=== PATIENT | male | born 1995 | race Caucasian/White ===

== ENCOUNTER 2020-01-09 15:18 | Emergency (ER) | payer SELFPAY ==
[2020-01-09 17:48] VITALS: O2SAT 99
[2020-01-09 17:49] VITALS: BP 118/72; TEMP 98
== END 2020-01-09 17:43 | disposition home or self-care (01) ==
LOC: ER 15:18
DX: R07.9 Chest pain, unspecified (principal); F17.210 Nicotine dependence, cigarettes, uncomplicated
CPT/HCPCS: 36415; 71045; 80048; 80076; 80307; 81003; 83735; 83880; 84484; 85025; 85610; 93005; 99284

== ENCOUNTER 2021-07-18 13:56 | Emergency (ER) | payer SELFPAY ==
--- NOTE | 2021-07-18 16:25 | RAD REPORT ---
EXAM DESCRIPTION: US - Scrotum Testicles - 07/18/2021 3:20 pm CLINICAL HISTORY: Pain;Swelling COMPARISON: No comparisons FINDINGS: Testicular tissue is homogeneous. Doppler evaluation shows normal blood flow within the te sticular tissue. No epididymis enlargement or hyperemia seen. Left-sided vasculature is prominent aris pected to be a small varicocele. No hernia could be confirmed. IMPRESSION: No acute testicle or epididymis finding. Small left varicocele is suspected. No right-sided hernia could be demonstrated. Ongoing concerns for inguinal hernia can be addressed wi th CT imaging.
[2021-07-18 16:45] LABS: Urine Blood Negative (Negative); Urine Glucose Negative (Negative); Urine Protein Negative (Negative); Urine Specific Gravity 1.025 (1.005-1.030); Urine pH 6.5 (5.0-7.0)
--- NOTE | 2021-07-18 16:47 | ER ---
Nurse's Notes [facility] Name: Andres Guzman Age: 26 yrs Sex: Male : 1995 Arrival Date: 07/18/2021 Time: 13:56 Bed 26 Private MD: Diagnosis: Epididymitis Presentation: 07/18 14:34 Chief complaint: Patient states: Testicular pain, swelling that last night, worse lp1 today; Right testicular pain, redness; denies any discharge;. Coronavirus screen: At this time, the client does not indicate any symptoms associated with coronavirus-19. Ebola Screen: No symptoms or risks identified at this time. Risk Assessment: Do you want to hurt yourself or someone else? Patient reports no desire to harm self or others. Onset of symptoms was July 17, 2021. 14:34 Method Of Arrival: Ambulatory lp1 14:34 Acuity: ZHOU 3 lp1 14:36 Initial Sepsis Screen: Does the patient meet any 2 criteria? No. Patient's initial lp1 sepsis screen is negative. Does the patient have a suspected source of infection? No. Patient's initial sepsis screen is negative. Historical: - Allergies: 14:35 No Known Allergies; lp1 - Home Meds: 14:35 None [Active]; lp1 - PMHx: 14:35 None; lp1 - PSHx: 14:35 None; lp1 - Immunization history:: Adult Immunizations up to date, Client reports having NOT received the Covid vaccine. - Social history:: Smoking status: Patient reports the use of cigarette tobacco products, smokes one-half pack cigarettes per day. Screenin:36 Abuse screen: Denies threats or abuse. Denies injuries from another. Nutritional lp1 screening: No deficits noted. Tuberculosis screening: No symptoms or risk factors identified. Fall Risk None identified. Assessment: 15:39 General: Appears in no apparent distress. uncomfortable, Behavior is calm, cooperative, aj1 appropriate for age. Pain: Complains of pain in pelvis Pain does not radiate. Neuro: Level of Consciousness is awake, alert, obeys commands, Oriented to person, place, time, situation. Cardiovascular: Patient's skin is warm and dry. Respiratory: Airway is patent Respiratory effort is even, unlabored, Respiratory pattern is regular, symmetrical. GI: No signs and/or symptoms were reported involving the gastrointestinal system. : Swelling noted on scrotum. EENT: No signs and/or symptoms were reported regarding the EENT system. Derm: No signs and/or symptoms reported regarding the dermatologic system. Skin is pink, warm \T\ dry. normal. Musculoskeletal: No signs and/or symptoms reported regarding the musculoskeletal system. Circulation, motion, and sensation intact. Vital Signs: 14:36 BP 126 / 71; Pulse 101; Resp 16; Temp 98.1(O); Pulse Ox 100% on R/A; Weight 63.5 kg lp1 (R); Height 5 ft. 6 in. (167.64 cm); Pain 8/10; 14:36 Body Mass Index 22.60 (63.50 kg, 167.64 cm) lp1 ED Course: 13:56 Patient arrived in ED. as 14:35 Triage completed. lp1 14:35 Arm band placed on. lp1 15:20 Scrotum Testicles US In Process Unspecified. EDMS 15:37 Thomas House NP is PHCP. pm1 15:37 Jos Marsh MD is Attending Physician. pm1 15:39 Graciela Ribera, RN is Primary Nurse. aj1 15:39 Patient has correct armband on for positive identification. Bed in low position. Call aj1 light in reach. 15:39 No provider procedures requiring assistance completed. aj1 17:19 Patient did not have IV access during this emergency room visit. aj1 Administered Medications: 16:36 Drug: HYDROcodone-acetaminophen 5 mg-325 mg 1 tabs Route: PO; aj1 17:19 Follow up: Response: No adverse reaction aj1 16:51 Drug: Rocephin (cefTRIAXone) 250 mg Route: IM; Site: right gluteus; aj1 17:19 Follow up: Response: No adverse reaction aj1 Outcome: 16:47 Discharge ordered by MD. pm1 17:19 Discharged to home ambulatory. aj1 17:19 Condition: good 17:19 Discharge instructions given to patient, Instructed on discharge instructions, follow up and referral plans. medication usage, Demonstrated understanding of instructions, follow-up care, medications, Prescriptions given X 2. 17:19 Patient left the ED. aj1 Signatures: Dispatcher [employer] EDID Graciela Ribera, RN RN aj1 Ya Esteban Laura RN RN lp1 Thomas House, INVESTIGATOR INVESTIGATOR pm1
--- NOTE | 2021-07-18 16:47 | EDPHYS ---
Physician Documentation [facility] Name: Andres Guzman Age: 26 yrs Sex: Male : 1995 Arrival Date: 07/18/2021 Time: 13:56 Bed 26 Private MD: Jos Portillo HPI: 07/18 16:34 This 26 yrs old Male presents to ER via Ambulatory with complaints of pm1 Testicular Swelling, Testicular Pain. 16:34 The patient presents with scrotal pain, of the right side, in the area of the pm1 epidydimis, with swelling. Onset: The symptoms/episode began/occurred yesterday. Modifying factors: The symptoms are alleviated by nothing, the symptoms are aggravated by movement. Associated signs and symptoms: Pertinent negatives: abdominal pain, dysuria, fever, hematuria, Penile discharge. Severity of symptoms: in the emergency department the symptoms have improved. The patient has experienced similar episodes in the past, a few times, STD related epididymitis. The patient has not recently seen a physician. Patient reports complaints of right epididymal swelling and pain onset last night. Patient reports possible cause moving 65 inch TV. Patient reports prior history of similar episodes related to STD related epididymitis. Patient reports no discharge or burning with urination. Historical: - Allergies: 14:35 No Known Allergies; lp1 - Home Meds: 14:35 None [Active]; lp1 - PMHx: 14:35 None; lp1 - PSHx: 14:35 None; lp1 - Immunization history:: Adult Immunizations up to date, Client reports having NOT received the Covid vaccine. - Social history:: Smoking status: Patient reports the use of cigarette tobacco products, smokes one-half pack cigarettes per day. ROS: 16:34 Constitutional: Negative for fever, chills, and weight loss, Cardiovascular: Negative pm1 for chest pain, palpitations, and edema, Respiratory: Negative for shortness of breath, cough, wheezing, and pleuritic chest pain, Abdomen/GI: Negative for abdominal pain, nausea, vomiting, diarrhea, and constipation. 16:34 MS/Extremity: Negative for injury and deformity, Skin: Negative for injury, rash, and discoloration. 16:34 : Positive for of the Right scrotum, Negative for urinary symptoms, hematuria, flank pain, burning with urination, difficulty urinating, penile discharge. 16:34 All other systems are negative. Exam: 16:34 Constitutional: This is a well developed, well nourished patient who is awake, alert, pm1 and in no acute distress. Head/Face: Normocephalic, atraumatic. 16:34 Skin: Warm, dry with normal turgor. Normal color with no rashes, no lesions, and no evidence of cellulitis. MS/ Extremity: Pulses equal, no cyanosis. Neurovascular intact. Full, normal range of motion. 16:34 Cardiovascular: Exam negative for acute changes, Rate: normal, Rhythm: regular, Pulses: no pulse deficits are appreciated. 16:34 Respiratory: Exam negative for acute changes, respiratory distress, shortness of breath. 16:34 Abdomen/GI: Inspection: abdomen appears normal, Palpation: abdomen is soft and non-tender, in all quadrants. 16:34 : Male external genitalia: swelling: is not appreciated, tenderness, of the Left epididymal area is noted, that is mild, Sexual behavior: the patient is sexually active. 16:34 Neuro: Exam negative for acute changes, Orientation: is normal, Mentation: is normal, Motor: is normal, moves all fours. 16:34 Abdomen/GI: Hernia: not appreciated, noted in the right inguinal area and right pm1 femoral area, tenderness, is not appreciated. Vital Signs: 14:36 BP 126 / 71; Pulse 101; Resp 16; Temp 98.1(O); Pulse Ox 100% on R/A; Weight 63.5 kg lp1 (R); Height 5 ft. 6 in. (167.64 cm); Pain 8/10; 14:36 Body Mass Index 22.60 (63.50 kg, 167.64 cm) lp1 MDM: 15:37 Patient medically screened. pm1 16:34 Data reviewed: vital signs. Data interpreted: Pulse oximetry: on room air is 100 %. pm1 Interpretation: normal. 16:34 Differential diagnosis: nonspecific abdominal pain, UTI, Hernia, epididymitis, pm1 testicular torsion. 16:39 ED course: SUPERVISOR [employer]BLE aware reviewed. pm1 16:46 Counseling: I had a detailed discussion with the patient and/or guardian regarding: the pm1 historical points, exam findings, and any diagnostic results supporting the discharge/admit diagnosis, lab results, radiology results, the need for outpatient follow up, a family practitioner, a urologist, to return to the emergency department if symptoms worsen or persist or if there are any questions or concerns that arise at home. 07/18 15:45 Order name: Urine Microscopic Only; Complete Time: 17:03 pm1 07/18 16:44 Order name: Urine Dipstick-Ancillary; Complete Time: 16:47 EDMS 07/18 14:36 Order name: Scrotum Testicles US; Complete Time: 16:34 lp1 07/18 15:45 Order name: Urine Dipstick-Ancillary (obtain specimen); Complete Time: 16:52 pm1 Administered Medications: 16:36 Drug: HYDROcodone-acetaminophen 5 mg-325 mg 1 tabs Route: PO; aj1 17:19 Follow up: Response: No adverse reaction aj1 16:51 Drug: Rocephin (cefTRIAXone) 250 mg Route: IM; Site: right gluteus; aj1 17:19 Follow up: Response: No adverse reaction aj1 Disposition: 07/19 16:18 I agree with the assessment and plan of care. [facility] Disposition Summary: 07/18/21 16:47 Discharge Ordered Location: Home pm1 Problem: new pm1 Symptoms: have improved pm1 Condition: Stable pm1 Diagnosis - Epididymitis pm1 Followup: pm1 - With: Emergency Department - When: As needed - Reason: Worsening of condition Followup: pm1 - With: Private Physician - When: 2 - 3 days - Reason: Recheck today's complaints, Continuance of care, Re-evaluation by your physician Discharge Instructions: - Discharge Summary Sheet pm1 - Epididymitis pm1 - Varicocele pm1 Forms: - Medication Reconciliation Form pm1 - Thank You Letter pm1 - Antibiotic Education pm1 - Prescription Opioid Use pm1 Prescriptions: - Doxycycline Hyclate 100 mg Oral Tablet - take 1 tablet by ORAL route every 12 hours; 20 tablet; Refills: 0, Product pm1 Selection Permitted - Tramadol 50 mg Oral Tablet - take 1 tablet by ORAL route every 8 hours as needed; 12 tablet; Refills: 0, pm1 Product Selection Permitted Signatures: Dispatcher [employer] EDGraciela Bryant RN RN aj1 Jos Marsh MD MD cha Pena, Laura, RN RN lp1 Thomas House NP [facility] pm1
[2021-07-18] MEDS ORDERED: HYDROCODONE/APAP 5/325 MG TAB ONE (16:49)
[2021-07-18 17:01] LABS: Urine Bacteria <20 /HPF (NONE SEEN); Urine RBC <5 /HPF (NONE SEEN)
[2021-07-18] MEDS ORDERED: CEFTRIAXONE 250 MG/VIAL ONE (17:13)
[2021-07-18 17:25] VITALS: BP 126/71; TEMP 98.1; O2SAT 100
== END 2021-07-18 17:19 | disposition home or self-care (01) ==
LOC: ER 13:56
DX: N45.1 Epididymitis (principal); F17.210 Nicotine dependence, cigarettes, uncomplicated
CPT/HCPCS: 76870; 81003; 81015; 96372; 99283; J0696

== ENCOUNTER 2021-10-22 06:40 | Emergency (ER) | payer SELFPAY ==
[2021-10-22] MEDS ORDERED: KETOROLAC 30 MG/ML INJ ONE (07:05)
--- NOTE | 2021-10-22 07:27 | ER ---
Nurse's Notes [facility] Name: Andres Guzman Age: 26 yrs Sex: Male : 1995 Arrival Date: 10/22/2021 Time: 06:42 Bed 23 Private MD: Diagnosis: Strain of muscle and tendon of back wall of thorax;Strain of other muscles, fascia and tendons at shoulder and upper arm level, right arm Presentation: 10/22 06:57 Chief complaint: Patient states: was working out in the gym 2 days ago, unable to flex sm5 his R arm and having pain in bicep and shoulder, able to extend it. Coronavirus screen: At this time, the client does not indicate any symptoms associated with coronavirus-19. Ebola Screen: No symptoms or risks identified at this time. Initial Sepsis Screen: Does the patient meet any 2 criteria? No. Patient's initial sepsis screen is negative. Does the patient have a suspected source of infection? No. Patient's initial sepsis screen is negative. Risk Assessment: Do you want to hurt yourself or someone else? Patient reports no desire to harm self or others. Onset of symptoms was October 20, 2021. 06:57 Method Of Arrival: Ambulatory 5 06:57 Acuity: ZHOU 4 sm5 Triage Assessment: 06:59 General: Appears in no apparent distress. Behavior is cooperative. Pain: Complains of sm5 pain in right arm. Musculoskeletal: Reports difficulty moving R arm. Injury Description: working out in gym strained muscle. Historical: - Allergies: 06:58 No Known Allergies; sm5 - Home Meds: 07:17 None [Active]; jd3 - PMHx: 07:17 None; jd3 - PSHx: 07:17 None; jd3 - Immunization history:: Adult Immunizations up to date. - Social history:: Smoking status: Patient reports the use of cigarette tobacco products. Screenin:16 Abuse screen: Denies threats or abuse. Nutritional screening: No deficits noted. jd3 Tuberculosis screening: No symptoms or risk factors identified. Fall Risk None identified. Assessment: 07:15 General: Appears in no apparent distress. comfortable, Behavior is calm, cooperative, jd3 appropriate for age. Pain: Complains of pain in right shoulder Quality of pain is described as aching, tender, Aggravated by exercise, increased activity, repositioning. Neuro: Level of Consciousness is awake, alert, obeys commands, Oriented to person, place, time, situation. Cardiovascular: Denies chest pain, Capillary refill < 3 seconds Patient's skin is warm and dry. Respiratory: Airway is patent Respiratory effort is even, unlabored, Respiratory pattern is regular, symmetrical, Denies cough, shortness of breath. GI: No signs and/or symptoms were reported involving the gastrointestinal system. : No signs and/or symptoms were reported regarding the genitourinary system. EENT: No signs and/or symptoms were reported regarding the EENT system. Derm: Skin is intact, Skin is dry, Skin is normal, Skin temperature is warm. Musculoskeletal: Circulation, motion, and sensation intact. Range of motion: limited in right shoulder. Vital Signs: 06:57 BP 128 / 81; Pulse 92; Resp 18; Temp 98.0; Pulse Ox 97% on R/A; Weight 63.5 kg; Height 5 5 ft. 6 in. (167.64 cm); Pain 5/10; 06:57 Body Mass Index 22.60 (63.50 kg, 167.64 cm) [facility] ED Course: 06:42 Patient arrived in ED. 06:43 Jose Perdomo PA is PHCP. [facility] 06:43 Nabil Ennis MD is Attending Physician. [facility] 06:58 Triage completed. [facility] 07:02 Graham Reddy, RN is Primary Nurse. jd3 07:14 Arm band placed on. jd3 07:16 Patient has correct armband on for positive identification. Bed in low position. Call jd3 light in reach. Side rails up X 1. Pulse ox on. NIBP on. 07:16 Sling applied to right arm. jd3 07:17 No provider procedures requiring assistance completed. Patient did not have IV access jd3 during this emergency room visit. 07:24 Doc Siddiqui MD is Referral Physician. [facility] Administered Medications: 07:07 Drug: Ketorolac 30 mg Route: IM; Site: right deltoid; jd3 07:41 Follow up: Response: No adverse reaction jd3 Outcome: 07:26 Discharge ordered by . aicha 07:40 Discharged to home ambulatory. jd3 07:40 Condition: stable 07:40 Discharge instructions given to patient, Instructed on discharge instructions, follow up and referral plans. medication usage, Demonstrated understanding of instructions, follow-up care, medications, Prescriptions given X 2. 07:40 Patient left the ED. heavend3 Signatures: Jose Perdomo PA PA jmm Davies, Jonathon RN RN jd3 Sharon Horvath Sarah, RN RN sm5 Corrections: (The following items were deleted from the chart) 06:59 06:57 BP 128 / 81; Pulse 92bpm; Resp 18bpm; Pulse Ox 97% RA; Temp 98.0F; sm5 sm5
--- NOTE | 2021-10-22 07:27 | EDPHYS ---
Physician Documentation [facility] Name: Andres Guzman Age: 26 yrs Sex: Male : 1995 Arrival Date: 10/22/2021 Time: 06:42 Bed 23 Private MD: ED Physician Nabil Ennis HPI: 10/22 07:15 This 26 yrs old Male presents to ER via Ambulatory with complaints of Arm Injury. jmm 07:15 The patient or guardian complains of injury, pain. Onset: The symptoms/episode jmm began/occurred 2 day(s) ago. 07:15 Modifying factors: The symptoms are alleviated by remaining still, the symptoms are jmm aggravated by movement, lifting weight, bending arm. This is a 26-year-old male with no known medical problems presented to the emergency department with complaints of right arm pain and right upper back pain following work-up which occurred 2 days ago. Patient states he worked out his chest and his arms. Patient states now he has pain on full extension of his right elbow and also has generalized pain to his right shoulder right upper back. Patient states this started first time he worked out in 2 years.. Historical: - Allergies: 06:58 No Known Allergies; sm5 - Home Meds: 07:17 None [Active]; jd3 - PMHx: 07:17 None; jd3 - PSHx: 07:17 None; jd3 - Immunization history:: Adult Immunizations up to date. - Social history:: Smoking status: Patient reports the use of cigarette tobacco products. ROS: 07:15 Constitutional: Negative for fever, chills, and weight loss, Cardiovascular: Negative jmm for chest pain, palpitations, and edema, Respiratory: Negative for shortness of breath, cough, wheezing, and pleuritic chest pain. 07:15 MS/extremity: Positive for pain. 07:15 All other systems are negative. Exam: 07:15 Constitutional: This is a well developed, well nourished patient who is awake, alert, jmm and in no acute distress. Head/Face: atraumatic. Eyes: EOMI, no conjunctival erythema appreciated ENT: Moist Mucus Membranes Neck: Trachea midline, Supple Chest/axilla: Normal chest wall appearance and motion. Cardiovascular: Regular rate and rhythm. No edema appreciated Respiratory: Normal respirations, no respiratory distress appreciated Abdomen/GI: Non distended, soft Back: Normal ROM Skin: General appearance color normal 07:15 Musculoskeletal/extremity: Full range of motion appreciated to the right elbow, pain on complete extension noted to the insertion of the triceps. Pain on palpation of the right deltoid and right trapezius.. 07:15 Skin: Appearance: Color: normal in color. 07:15 Neuro: Orientation: is normal, Mentation: is normal, Memory: is normal. 07:15 Psych: Behavior/mood is pleasant, cooperative. Vital Signs: 06:57 BP 128 / 81; Pulse 92; Resp 18; Temp 98.0; Pulse Ox 97% on R/A; Weight 63.5 kg; Height sm5 5 ft. 6 in. (167.64 cm); Pain 5/10; 06:57 Body Mass Index 22.60 (63.50 kg, 167.64 cm) sm5 MDM: 07:04 Patient medically screened. [facility] 07:18 Data reviewed: vital signs, nurses notes. Counseling: I had a detailed discussion with aicha the patient and/or guardian regarding: the historical points, exam findings, and any diagnostic results supporting the discharge/admit diagnosis, the need for outpatient follow up, to return to the emergency department if symptoms worsen or persist or if there are any questions or concerns that arise at home. ED course: Patient is alert and non toxic in appearance in the ED. I do not suspect fracture. Right arm is NVI. Advised to follow up with ortho and otherwise given strict return precautions. Patient understood and agrees with the plan of care. . 10/22 07:01 Order name: Ha; Complete Time: 07:02 aicha Administered Medications: 07:07 Drug: Ketorolac 30 mg Route: IM; Site: right deltoid; jd3 07:41 Follow up: Response: No adverse reaction jd3 Disposition Summary: 10/22/21 07:26 Discharge Ordered Location: Home aicha Condition: Stable aicha Diagnosis - Strain of muscle and tendon of back wall of thorax [place] - Strain of other muscles, fascia and tendons at shoulder and upper arm level, right [facility] arm Followup: aicha - With: Doc Siddiqui MD - When: 2 - 3 days - Reason: Recheck today's complaints, Continuance of care, Re-evaluation by your physician Discharge Instructions: - Discharge Summary Sheet [facility] - Thoracic Strain [place] - Deltoid Disruption jmm - Distal Triceps Tendon Tear [facility] Forms: - Medication Reconciliation Form [facility] - Thank You Letter [facility] - Antibiotic Education [facility] - Prescription Opioid Use [facility] - Work release form [facility] Prescriptions: - Ibuprofen 800 mg Oral Tablet - take 1 tablet by ORAL route every 12 hours As needed take with food; 20 tablet; [facility] Refills: 0, Product Selection Permitted - orphenadrine citrate 100 mg Oral Tablet Sustained Release - take 1 tablet by ORAL route 2 times per day As needed; 20 tablet; Refills: 0, [facility] Product Selection Permitted Addendum: 10/24/2021 06:56 Co-signature as Attending Physician, Nabil Ennis MD I agree with the assessment and r n plan of care. Attestation: The patient's history, exam findings, diagnostics, and a summary of any interventions or procedures was reviewed in detail with Jose GARRETT. Signatures: Jose Perdomo PA PA jmm Nieto, Roman, MD MD rn Davies, Jonathon RN RN jd3 Regi Mallory RN RN sm5
[2021-10-22 07:46] VITALS: BP 128/81; TEMP 98; O2SAT 97
== END 2021-10-22 07:40 | disposition home or self-care (01) ==
LOC: ER 06:40
DX: S46.811A Strain of other muscles, fascia and tendons at shoulder and upper arm level, right arm, initial encounter (principal); S29.012A Strain of muscle and tendon of back wall of thorax, initial encounter; Z72.0 Tobacco use
CPT/HCPCS: 96372; 99284

== ENCOUNTER 2022-05-12 21:11 | Emergency (ER) | payer BC ==
--- NOTE | 2022-05-13 00:24 | ER ---
Nurse's Notes [facility] Name: Andres Guzman Age: 26 yrs Sex: Male : 1995 Arrival Date: 05/12/2022 Time: 21:14 Bed Treatment Private MD: Diagnosis: Varicose veins of other specified sites-left scrotum Presentation: 05/12 22:19 Chief complaint: Patient states: he has a lump on his scrotum for several weeks which bb is painful mom told him to come get it checked out. Coronavirus screen: At this time, the client does not indicate any symptoms associated with coronavirus-19. Ebola Screen: No symptoms or risks identified at this time. Initial Sepsis Screen: Does the patient meet any 2 criteria? No. Patient's initial sepsis screen is negative. Does the patient have a suspected source of infection? No. Patient's initial sepsis screen is negative. Risk Assessment: Do you want to hurt yourself or someone else? Patient reports no desire to harm self or others. Onset of symptoms is unknown. 22:19 Method Of Arrival: Ambulatory bb 22:19 Acuity: ZHOU 4 bb Historical: - Allergies: 22:20 No Known Allergies; bb - Home Meds: 22:20 None [Active]; bb - PMHx: 22:20 None; bb - PSHx: 22:20 None; bb - Immunization history:: Adult Immunizations up to date. - Social history:: Smoking status: Patient reports the use of cigarette tobacco products. Screenin:58 Abuse screen: Denies threats or abuse. Denies injuries from another. Nutritional ld1 screening: No deficits noted. Tuberculosis screening: No symptoms or risk factors identified. Fall Risk None identified. Assessment: 23:57 General: Appears in no apparent distress. comfortable, Behavior is calm, cooperative, ld1 appropriate for age. Pain: Complains of pain in right testicle Pain does not radiate. Pain currently is 6 out of 10 on a pain scale. Quality of pain is described as aching, throbbing. Neuro: Level of Consciousness is awake, alert, obeys commands, Oriented to person, place, time, situation. Cardiovascular: Capillary refill < 3 seconds Patient's skin is warm and dry. Respiratory: Airway is patent Respiratory effort is even, unlabored. GI: Abdomen is flat, non-distended. : No signs and/or symptoms were reported regarding the genitourinary system. EENT: No signs and/or symptoms were reported regarding the EENT system. Derm: No signs and/or symptoms reported regarding the dermatologic system. Musculoskeletal: No signs and/or symptoms reported regarding the musculoskeletal system. 05/13 00:34 Reassessment: Patient is alert, oriented x 3, equal unlabored respirations, skin bb warm/dry/pink. pt verbalized understanding of and agrees to plan of care discharge instructions given pt ambulated with steady gait to exit. Vital Signs: 05/12 22:19 BP 123 / 75; Pulse 81; Resp 16 S; Temp 98.3(O); Pulse Ox 96% on R/A; Weight 65.77 kg bb (R); Height 5 ft. 6 in. (167.64 cm) (R); Pain 3/10; 23:57 BP 126 / 72; Pulse 72; Resp 18; Pulse Ox 98% on R/A; ld1 22:19 Body Mass Index 23.40 (65.77 kg, 167.64 cm) bb ED Course: 21:14 Patient arrived in ED. as 22:20 Triage completed. bb 22:20 Arm band placed on Patient placed in an exam room, on a stretcher, on pulse oximetry. bb 22:28 Ashley Bowles FNP-C is PHCP. snw 22:28 Jos Marsh MD is Attending Physician. snw 23:53 US Scrotum Testicles In Process Unspecified. EDMS 23:58 Patient has correct armband on for positive identification. Placed in gown. Bed in low ld1 position. Call light in reach. Side rails up X2. Pulse ox on. NIBP on. Door closed. Noise minimized. Warm blanket given. 23:58 No provider procedures requiring assistance completed. ld1 05/13 00:35 Patient did not have IV access during this emergency room visit. bb Administered Medications: No medications were administered Medication: 05/12 23:58 VIS not applicable for this client. ld1 Outcome: 05/13 00:23 Discharge ordered by . snw 00:35 Discharged to home ambulatory. bb 00:35 Condition: stable 00:35 Discharge instructions given to patient, Instructed on discharge instructions, follow up and referral plans. Demonstrated understanding of instructions, follow-up care. 00:35 Patient left the ED. bb Signatures: Dispatcher [employer] EDMS Ashley Bowles, GEOSPATIAL TECHNOLOGIST-C GEOSPATIAL TECHNOLOGIST-[place] Esteban Brenda, RN RN bb Ruma Marshall RN RN ld1
--- NOTE | 2022-05-13 00:24 | EDPHYS ---
Physician Documentation [facility] Name: Andres Guzman Age: 26 yrs Sex: Male : 1995 Arrival Date: 05/12/2022 Time: 21:14 Bed Treatment Private MD: ED Physician Jos Marsh HPI: 05/12 22:34 This 26 yrs old Male presents to ER via Ambulatory with complaints of Groin Pain. snw 22:34 The patient presents with tenderness, that is moderate, of the right testicle. Onset: snw The symptoms/episode began/occurred gradually, and became persistent pt noted a knot to the testicle today. Associated signs and symptoms: The patient has no apparent associated signs or symptoms. Severity of symptoms: At their worst the symptoms were moderate. the tenderness to the right testicle has been present x several weeks. The patient has not recently seen a physician. Historical: - Allergies: 22:20 No Known Allergies; bb - Home Meds: 22:20 None [Active]; bb - PMHx: 22:20 None; bb - PSHx: 22:20 None; bb - Immunization history:: Adult Immunizations up to date. - Social history:: Smoking status: Patient reports the use of cigarette tobacco products. ROS: 22:33 Constitutional: Negative for fever, chills, and weight loss, Eyes: Negative for injury, snw pain, redness, and discharge, ENT: Negative for injury, pain, and discharge, Neck: Negative for injury, pain, and swelling, Cardiovascular: Negative for chest pain, palpitations, and edema, Respiratory: Negative for shortness of breath, cough, wheezing, and pleuritic chest pain, Abdomen/GI: Negative for abdominal pain, nausea, vomiting, diarrhea, and constipation, Back: Negative for injury and pain, MS/Extremity: Negative for injury and deformity, Skin: Negative for injury, rash, and discoloration, Neuro: Negative for headache, weakness, numbness, tingling, and seizure, Psych: Negative for depression, anxiety, suicide ideation, homicidal ideation, and hallucinations. 22:33 : Positive for testicular pain pt noted a small knot today. Exam: 22:32 Constitutional: This is a well developed, well nourished patient who is awake, alert, snw and in no acute distress. Head/Face: Normocephalic, atraumatic. Eyes: Pupils equal round and reactive to light, extra-ocular motions intact. Lids and lashes normal. Conjunctiva and sclera are non-icteric and not injected. Cornea within normal limits. Periorbital areas with no swelling, redness, or edema. ENT: Nares patent. No nasal discharge, no septal abnormalities noted. Tympanic membranes are normal and external auditory canals are clear. Oropharynx with no redness, swelling, or masses, exudates, or evidence of obstruction, uvula midline. Mucous membranes moist. Neck: Trachea midline, no thyromegaly or masses palpated, and no cervical lymphadenopathy. Supple, full range of motion without nuchal rigidity, or vertebral point tenderness. No Meningismus. Chest/axilla: Normal chest wall appearance and motion. Nontender with no deformity. No lesions are appreciated. Cardiovascular: Regular rate and rhythm with a normal S1 and S2. No gallops, murmurs, or rubs. Normal PMI, no JVD. No pulse deficits. Respiratory: Lungs have equal breath sounds bilaterally, clear to auscultation and percussion. No rales, rhonchi or wheezes noted. No increased work of breathing, no retractions or nasal flaring. Abdomen/GI: Soft, non-tender, with normal bowel sounds. No distension or tympany. No guarding or rebound. No evidence of tenderness throughout. Back: No spinal tenderness. No costovertebral tenderness. Full range of motion. Male : Normal genitalia with no discharge or lesions. Pt has had some pain to the right testicle for a few weeks, Noted a knot on the testicle today. Skin: Warm, dry with normal turgor. Normal color with no rashes, no lesions, and no evidence of cellulitis. MS/ Extremity: Pulses equal, no cyanosis. Neurovascular intact. Full, normal range of motion. Neuro: Awake and alert, GCS 15, oriented to person, place, time, and situation. Cranial nerves II-XII grossly intact. Motor strength 5/5 in all extremities. Sensory grossly intact. Cerebellar exam normal. Normal gait. Vital Signs: 22:19 BP 123 / 75; Pulse 81; Resp 16 S; Temp 98.3(O); Pulse Ox 96% on R/A; Weight 65.77 kg bb (R); Height 5 ft. 6 in. (167.64 cm) (R); Pain 3/10; 23:57 BP 126 / 72; Pulse 72; Resp 18; Pulse Ox 98% on R/A; ld1 22:19 Body Mass Index 23.40 (65.77 kg, 167.64 cm) bb MDM: 22:29 Patient medically screened. snw 05/13 00:18 Data reviewed: vital signs, nurses notes. Data interpreted: Pulse oximetry: on room air snw is 98 %. Interpretation: normal. Counseling: I had a detailed discussion with the patient and/or guardian regarding: the historical points, exam findings, and any diagnostic results supporting the discharge/admit diagnosis, radiology results, the need for outpatient follow up, for definitive care, to return to the emergency department if symptoms worsen or persist or if there are any questions or concerns that arise at home. Response to treatment: patient is well hydrated. Awaiting: Ultrasound results. Special discussion: Based on the history and exam findings, there is no indication for further emergent testing or inpatient evaluation. I discussed with the patient/guardian the need to see the primary care provider for further evaluation of the symptoms. I discussed with the patient/guardian the need to see the urologist for further evaluation of the symptoms. 05/12 22:29 Order name: US Scrotum Testicles snw Administered Medications: No medications were administered Disposition Summary: 05/13/22 00:23 Discharge Ordered Location: Home snw Condition: Stable snw Diagnosis - Varicose veins of other specified sites - left scrotum snw Followup: snw - With: Emergency Department - When: As needed - Reason: Worsening of condition Followup: snw - With: Private Physician - When: 2 - 3 days - Reason: Recheck today's complaints, Continuance of care, Re-evaluation by your physician Discharge Instructions: - Discharge Summary Sheet snw - Varicocele snw Forms: - Medication Reconciliation Form snw - Thank You Letter snw - Antibiotic Education snw - Prescription Opioid Use snw Addendum: 05/15/2022 18:50 Co-signature as Attending Physician, Jos Marsh MD I agree with the assessment and c morocho plan of care. Signatures: Dispatcher [employer] Jos Sanches MD MD cha Waters, Shelly, PRODUCT SAFETY ASSOCIATE-C PRODUCT SAFETY ASSOCIATE-[place] Sejal Mccoy, RN RN bb
[2022-05-13 03:04] VITALS: TEMP 98.3
[2022-05-13 03:07] VITALS: BP 126/72; O2SAT 98
--- NOTE | 2022-05-13 18:54 | RAD REPORT ---
EXAM DESCRIPTION: US - Scrotum Testicles - 05/13/2022 1:22 am CLINICAL HISTORY: The patient is 26 years old and is Male; PAIN TECHNIQUE: Real-time ultrasound of the scrotum with color Doppler and image documentation. COMPARISON: No relevant prior studies available. FINDINGS: RIGHT TESTICLE: Unremarkable. No mass. There is normal blood flow in the testicle, w ithout evidence of testicular torsion. LEFT TESTICLE: The left testicle appears to be slightly hypervascular. The left testicle is homog eneous. There is no evidence of torsion. EPIDIDYMIDES: A small left epididymal cyst is present. SCROTUM: A small left hydrocele is present. Left varicocele is noted. IMPRESSION: 1. Findings suggest mild left orchitis with small hydrocele. 2. Left varicocele. Electronically signed by: Michaelle Gilliam MD 05/13/2022 12:21 AM CDT Due to temporary technical issues with the PACS/Fluency reporting system, reports are being signed by the in house radiologists without review as a courtesy to insure prompt reporting. The interpreting radiologist is fully responsible for the content of the report.
== END 2022-05-13 00:35 | disposition home or self-care (01) ==
LOC: ER 21:11
DX: I86.1 Scrotal varices (principal); F17.210 Nicotine dependence, cigarettes, uncomplicated
CPT/HCPCS: 76870; 99283